=== PATIENT | male | born 1990 | race Two or more races ===

== ENCOUNTER 2021-02-20 15:09 | Emergency (ER) | payer OTHER ==
[~2021-02-20] VITALS: Ht 170.2 cm; Wt 61.2 kg
[2021-02-20 16:08] VITALS: BP 127/78
[2021-02-20] MEDS ORDERED: LIDOCAINE 1% HCL (LOCAL ANESTH.) INJ 20ML MDV IJ ONE (17:15)
== END 2021-02-20 17:44 | disposition home or self-care (01) ==
LOC: ER 15:10
DX: S01.111A Laceration without foreign body of right eyelid and periocular area, initial encounter (principal); Y04.8XXA Assault by other bodily force, initial encounter; Y93.89 Activity, other specified; Y92.89 Other specified places as the place of occurrence of the external cause; Y99.8 Other external cause status
CPT/HCPCS: 12011

== ENCOUNTER 2021-03-02 17:43 | Emergency (ER) | payer OTHER ==
[~2021-03-02] VITALS: Ht 170.2 cm; Wt 63.5 kg
[2021-03-02 17:45] VITALS: BP 118/72
== END 2021-03-02 23:59 | disposition left against medical advice (07) ==
LOC: ER 17:43
DX: Z48.01 Encounter for change or removal of surgical wound dressing (principal); Z53.21 Procedure and treatment not carried out due to patient leaving prior to being seen by health care provider